=== PATIENT | female | born 2005 | race Caucasian/White ===

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

== ENCOUNTER 2025-03-15 07:03 | Inpatient (IN) | payer BC ==
[~2025-03-15] VITALS: Ht 160 cm; Wt 40.9 kg
[2025-03-15] MEDS ORDERED: VENL150C43 PO (07:16)
[2025-03-15] MEDS ORDERED: HYDR-643 PO (07:16)
[2025-03-15 08:19] LABS: PLATELET COUNT, AUTOMATED 319 10^3/uL (150-450)
[2025-03-15 08:52] LABS: ETHYL ALCOHOL (ETHANOL) < 0.003 % (0.000-0.010)
[2025-03-15 08:54] LABS: ALT/SGPT 107 U/L (7.0-40); AST/SGOT 48 U/L (<34); CALCIUM LEVEL 10.0 MG/DL (8.5-10.1); CARBON DIOXIDE LEVEL 20 MMOL/L (20-31); CHLORIDE LEVEL 103 MMOL/L (98-107); CREATININE FOR GFR 0.66 MG/DL (0.55-1.30); GLOMERULAR FILTRATION RATE > 90.0 (>60); POTASSIUM SERUM 3.8 MMOL/L (3.5-5.1); SALICYLATE LEVEL < 3.0 MG/DL (<30); SODIUM LEVEL 139 MMOL/L (136-145)
[2025-03-15 08:58] LABS: HCG, SERUM QUALITATIVE NEGATIVE (NEGATIVE)
[2025-03-15] MEDS ORDERED: TRIA80CR15 TOP (08:59)
[2025-03-15] MEDS ORDERED: CEPH500T PO (08:59)
[2025-03-15] MEDS ORDERED: HOME MED LIST COMPLETE! XX SCH (09:00)
[2025-03-15 09:28] LABS: AMPHETAMINES LEVEL URINE NEGATIVE (NEGATIVE); BARBITURATES URINE NEGATIVE (NEGATIVE); BENZODIAZEPINES URINE NEGATIVE (NEGATIVE); COCAINE METABOLITE URINE NEGATIVE (NEGATIVE); METHADONE URINE NEGATIVE (NEGATIVE); OPIATES URINE NEGATIVE (NEGATIVE); PHENCYCLIDINE URINE NEGATIVE (NEGATIVE)
[2025-03-15 09:41] LABS: CANNABINOIDS URINE POSITIVE (NEGATIVE)
[2025-03-15] MEDS ORDERED: MAALOX 30 ML SUSP *UDC PO PRN (15:10)
[2025-03-15] MEDS ORDERED: ACETAMINOPHEN 325 MG TAB PO PRN (15:10)
[2025-03-15] MEDS ORDERED: MOM 30 ML SUSPENSION UDC PO PRN (15:10)
[2025-03-15 16:27] VITALS: BP 136/80; TEMP 98.4; O2SAT 98
[2025-03-15] MEDS ORDERED: NICOTINE POLACRILEX 2 MG GUM PO PRN (17:50)
[2025-03-15] MEDS: LORazepam 1 MG TAB PO ONE (21:31)
[2025-03-16] MEDS: HALOPERIDOL 2 MG TAB PO ONE (09:44)
[2025-03-16] MEDS: LORazepam 1 MG TAB PO ONE (09:44)
[2025-03-16 11:46] VITALS: BP 136/80; TEMP 98.4; O2SAT 98
[2025-03-16 14:54] VITALS: BP 115/62; TEMP 98.3; O2SAT 96
[2025-03-16] MEDS: OLANZapine 5 MG TAB PO SCH (20:05)
[2025-03-16] MEDS: traZODone 50 MG TAB PO PRN (20:05)
[2025-03-17 06:45] VITALS: BP 108/59; TEMP 98.6; O2SAT 98
[2025-03-17] MEDS: OLANZapine ORAL DISINTEGRATING TAB 5MG PO PRN (07:58)
[2025-03-17 15:39] VITALS: BP 119/70; TEMP 97.9; O2SAT 100
[2025-03-17] MEDS: OLANZapine 10 MG TAB PO SCH (19:59)
[2025-03-18] MEDS: VENLAFAXINE **XR** 75MG CAPSULE PO SCH (09:35)
[2025-03-18] MEDS: VENLAFAXINE **XR** 75MG CAPSULE PO ONE (11:04)
[2025-03-18 15:01] VITALS: BP 123/78; TEMP 97.8; O2SAT 98
[2025-03-18 16:37] LABS: ALT/SGPT 42 U/L (7.0-40); AST/SGOT 19 U/L (<34)
[2025-03-18 17:12] LABS: HEPATITIS C VIRUS ABY INDEX 0.02 INDEX (<0.8)
[2025-03-19 06:18] VITALS: BP 108/71; TEMP 97.6; O2SAT 100
[2025-03-19] MEDS: VENLAFAXINE **XR** 75MG CAPSULE PO SCH (08:00)
[2025-03-19] MEDS: IBUPROFEN 400 MG TAB PO PRN (10:41)
[2025-03-19 15:12] VITALS: BP 126/73; TEMP 98.1; O2SAT 100
[2025-03-20 06:34] VITALS: BP 126/74; TEMP 98.4; O2SAT 99
[2025-03-20 16:31] VITALS: BP 129/95; TEMP 98; O2SAT 98
[2025-03-21 06:29] VITALS: BP 108/67; TEMP 98; O2SAT 99
[2025-03-21] MEDS ORDERED: VENL75CA47 PO (09:17)
[2025-03-21] MEDS ORDERED: OLAN1TAB20 PO (09:17)
[2025-03-21] MEDS ORDERED: TRAZ-252 PO (09:17)
== END 2025-03-21 11:20 | disposition home or self-care (01) | DRG 751 ==
LOC: M ED 07:03 → M ED INP 15:06 → M PSY 16:11
PROVIDERS: ADMIT General Practice; ATTEND General Practice
DX: F32.1 Major depressive disorder, single episode, moderate (principal); F41.9 Anxiety disorder, unspecified; F50.9 Eating disorder, unspecified; F12.20 Cannabis dependence, uncomplicated; R74.01 Elevation of levels of liver transaminase levels; Z79.899 Other long term (current) drug therapy